=== PATIENT | female | born 1970 ===

== ENCOUNTER 2017-10-02 11:01 | Emergency (ER) | payer MEDICAID, SELFPAY ==
[2017-10-02 11:13] VITALS: BMI 29.0
[2017-10-02 11:14] VITALS: BP 125/53; PULSE 70; RESP 16; TEMP 98.8; O2SAT 98
[2017-10-02] MEDS ORDERED: Naproxen 500 MG TAB PO STA (12:31)
--- NOTE | 2017-10-02 13:22 | ED PDOC ---
Upper Extremity Pain/Injury Time Seen by Provider: 10/02/17 12:30 Chief Complaint (Nursing): Upper Extremity Problem/Injury Chief Complaint (Provider): Upper Extremity Problem/Injury History Per: Patient History/Exam Limitations: no limitations Onset/Duration Of Symptoms: Days (x2) Current Symptoms Are (Timing): Still Present Additional Complaint(s): 47 year old female who presents to the emergency department with a complaint of left hand pain associated with swelling status post falling yesterday. Denied any numbness, difficulty moving fingers or other bodily injuries. PMD: none provided Past Medical History Reviewed: Historical Data, Nursing Documentation, Vital Signs Vital Signs: Last Vital Signs Temp 98.8 F 10/02/17 11:13 Pulse 70 10/02/17 11:13 Resp 16 10/02/17 11:13 BP 125/53 L 10/02/17 11:13 Pulse Ox 98 10/02/17 11:13 - Medical History PMH: No Chronic Diseases - Surgical History Surgical History: No Surg Hx - Family History Family History: States: Unknown Family Hx - Social History Current smoker - smoking cessation education provided: No Alcohol: None Drugs: Denies - Home Medications Home Medications: Ambulatory Orders Medication Instructions Recorded Naproxen 500 mg PO BID #30 tab 10/02/17 traMADol [Ultram] 50 mg PO TID PRN #15 tab 10/02/17 - Allergies Allergies/Adverse Reactions: Allergies Allergy/AdvReac Type Severity Reaction Status Date / Time No Known Allergies Allergy Verified 10/02/17 12:06 Review of Systems ROS Statement: Except As Marked, All Systems Reviewed And Found Negative Musculoskeletal: Positive for: Hand Pain (left-sided injury with swelling). Negative for: Other (difficulty moving fingers or other bodily injuries) Neurological: Negative for: Numbness (left hand) Physical Exam - Reviewed Nursing Documentation Reviewed: Yes Vital Signs Reviewed: Yes - Physical Exam Appears: Positive for: Non-toxic, Uncomfortable, In Acute Distress (mild). Negative for: No Acute Distress Skin: Positive for: Normal Color. Negative for: Rash Extremity: Positive for: Normal ROM (of left metacarpals), Tenderness (left hand over 5th metacarpal), Swelling (and ecchymosis of left hand over 5th metacarpal). Negative for: Deformity (left hand) Neurologic/Psych: Positive for: Alert (x3), reimbursement consultant II-XII (intact), Oriented - ECG O2 Sat by Pulse Oximetry: 98 (RA) Pulse Ox Interpretation: Normal Medical Decision Making Medical Decision Making: Initial Impression: Left hand injury S/P fall Initial Plan: * Naproxen 500m g PO * Xray hand (left) Scribe Attestation: Documented by Phyllis Duff, acting as a scribe for Ernestina Hightower PA-C. Provider Scribe Attestation: All medical record entries made by the Scribe were at my direction and personally dictated by me. I have reviewed the chart and agree that the record accurately reflects my personal performance of the history, physical exam, medical decision making, and the department course for this patient. I have also personally directed, reviewed, and agree with the discharge instructions and disposition. Disposition - Disposition
--- NOTE | 2017-10-02 13:24 | ED PDOC ---
Upper Extremity Pain/Injury Time Seen by Provider: 10/02/17 12:30 Chief Complaint (Nursing): Upper Extremity Problem/Injury Chief Complaint (Provider): Upper Extremity Problem/Injury History Per: Patient History/Exam Limitations: no limitations Onset/Duration Of Symptoms: Days (x2) Current Symptoms Are (Timing): Still Present Additional Complaint(s): 47 year old female who presents to the emergency department with a complaint of left hand pain associated with swelling status post falling yesterday. Denied any numbness, difficulty moving fingers or other bodily injuries. PMD: none provided Past Medical History Reviewed: Historical Data, Nursing Documentation, Vital Signs Vital Signs: Last Vital Signs Temp 98.8 F 10/02/17 11:13 Pulse 70 10/02/17 11:13 Resp 16 10/02/17 11:13 BP 125/53 L 10/02/17 11:13 Pulse Ox 98 10/02/17 11:13 - Medical History PMH: No Chronic Diseases - Surgical History Surgical History: No Surg Hx - Family History Family History: States: Unknown Family Hx - Social History Current smoker - smoking cessation education provided: No Alcohol: None Drugs: Denies - Home Medications Home Medications: Ambulatory Orders Medication Instructions Recorded Naproxen 500 mg PO BID #30 tab 10/02/17 traMADol [Ultram] 50 mg PO TID PRN #15 tab 10/02/17 - Allergies Allergies/Adverse Reactions: Allergies Allergy/AdvReac Type Severity Reaction Status Date / Time No Known Allergies Allergy Verified 10/02/17 12:06 Review of Systems ROS Statement: Except As Marked, All Systems Reviewed And Found Negative Musculoskeletal: Positive for: Hand Pain (left-sided with swelling). Negative for: Other (difficulty moving fingers or other bodily injuries) Neurological: Negative for: Numbness (left hand) Physical Exam - Reviewed Nursing Documentation Reviewed: Yes Vital Signs Reviewed: Yes - Physical Exam Appears: Positive for: Well, Non-toxic, Uncomfortable, In Acute Distress (mild) . Negative for: No Acute Distress Skin: Positive for: Normal Color, Warm, Dry. Negative for: Rash Pulses-Radial (L): 2+ Extremity: Positive for: Normal ROM (left metacarpals), Tenderness (left hand over 5th metacarpal), Swelling (and ecchymosis to left hand over 5th metacarpal) . Negative for: Deformity (left hand) Neurologic/Psych: Positive for: Alert (x3), orthopaedic physician assistant II-XII (intact), Oriented. Negative for: Motor/Sensory Deficits - ECG O2 Sat by Pulse Oximetry: 98 (RA) Pulse Ox Interpretation: Normal Medical Decision Making Medical Decision Making: Initial Impression: Left hand injury status post fall Initial Plan: * Naproxen 500m g PO * Xray hand (left) XR left hand: Comminuted fracture of the distal fifth metacarpal, no dislocation , as read by PA X-ray results discussed with the patient. Diagnoses of left fifth metacarpal fracture discussed with the patient. Orthoglass ulnar gutter splint applied by NAI. Sling applied by NAI. Neurovascular intact post splint application. Based on history, exam and diagnostic results plan will be for outpatient follow-up with orthopedic referral provided. Follow up with ortho referral in 1-2 days without fail. Advised to take medication as prescribed. Return to the emergency room at any time for any new or worsening symptoms. Patient states she fully agrees with and understands discharge instructions. States that she agrees with the plan and disposition. Verbalized and repeated discharge instructions and plan. I have given the patient opportunity to ask any additional questions. Scribe Attestation: Documented by Phyllis Duff, acting as a scribe for Ernestina Hightower PA-C. Provider Scribe Attestation: All medical record entries made by the Scribe were at my direction and personally dictated by me. I have reviewed the chart and agree that the record accurately reflects my personal performance of the history, physical exam, medical decision making, and the department course for this patient. I have also personally directed, reviewed, and agree with the discharge instructions and disposition. Disposition - Clinical Impression Clinical Impression: Closed fracture of 5th metacarpal - Patient ED Disposition Is Patient to be Admitted: No Counseled Patient/Family Regarding: Studies Performed, Diagnosis, Need For Followup, Rx Given - Disposition Referrals: Abhinav Nina MD [Staff Provider] - [facility] [Outside] Disposition: Routine/Home Disposition Time: 13:22 Condition: STABLE Additional Instructions: Thank you for letting us take care of you today. You were treated for left fifth metacarpal fracture. The emergency medical care you received today was directed at your acute symptoms. If you were prescribed any medication, please fill it and take as directed. It may take several days for your symptoms to resolve. Return to the Emergency Department if your symptoms worsen, do not improve, or if you have any other problems. Please one of the physicians/clinics you have been referred to that are listed on the Patient Visit Information form that is included in your discharge packet. Bring any paperwork you were given at discharge with you along with any medications you are taking to your follow up visit. Our treatment cannot replace ongoing medical care by a primary care provider (PCP) outside of the emergency department. Thank you for allowing the [facility] team to be part of your care today. Prescriptions: Naproxen 500 mg PO BID #30 tab traMADol [Ultram] 50 mg PO TID PRN #15 tab PRN Reason: Pain, Moderate (4-7) Instructions: Boxer Fracture (ED) Forms: [facility] ([place]), [facility] ED School/Work Excuse Print Language: TURKMEN - PA / CROP DUSTER / Resident Statement /DO has reviewed & agrees with the documentation as recorded.
--- NOTE | 2017-10-02 15:50 | RAD ---
PROCEDURE: Left Hand Radiographs. HISTORY: pain COMPARISON: None. FINDINGS: BONES: Comminuted fracture of the 5th metacarpal. JOINTS: Unremarkable. SOFT TISSUES: Swelling adjacent to 5th metacarpal. OTHER FINDINGS: None. IMPRESSION: Comminuted fracture of the 5th metacarpal.
== END 2017-10-02 13:49 | disposition home or self-care (01) ==
LOC: H.ER 11:01
DX: S62.307A Unspecified fracture of fifth metacarpal bone, left hand, initial encounter for closed fracture (principal); W19.XXXA Unspecified fall, initial encounter

== ENCOUNTER 2017-10-10 12:24 | Emergency (ER) | payer SELFPAY ==
[2017-10-10 12:24] VITALS: BMI 29.0
[2017-10-10 13:29] VITALS: BP 104/57; PULSE 58; RESP 18; TEMP 97.8; O2SAT 99
--- NOTE | 2017-10-10 14:31 | RAD ---
PROCEDURE: Left Hand Radiographs. HISTORY: pain COMPARISON: None available. FINDINGS: BONES: Comminuted fracture of the distal 5th metacarpal. The remainder of the visualized osseous structures appear intact. JOINTS: No dislocation. SOFT TISSUES: Soft tissue swelling. No evidence of radiopaque foreign body. OTHER FINDINGS: None. IMPRESSION: Comminuted fracture of the distal 5th metacarpal with associated soft tissue swelling.
--- NOTE | 2017-10-10 14:35 | ED PDOC ---
Upper Extremity Pain/Injury Time Seen by Provider: 10/10/17 13:33 Chief Complaint (Nursing): Upper Extremity Problem/Injury Chief Complaint (Provider): Left hand injury History Per: Patient History/Exam Limitations: no limitations Onset/Duration Of Symptoms: Days Current Symptoms Are (Timing): Still Present Additional Complaint(s): Patient was sent to ER by Dr. Duff from [facility] for evaluation of a diagnosed fracture on her left 5th metacarpal on 10/01/2017. Patient denies any numbness, weakness or pain to the area. She denies any new injuries or trauma. Past Medical History Reviewed: Historical Data, Nursing Documentation, Vital Signs Vital Signs: Last Vital Signs Temp 97.8 F 10/10/17 13:26 Pulse 58 L 10/10/17 13:26 Resp 18 10/10/17 13:26 BP 104/57 L 10/10/17 13:26 Pulse Ox 99 10/10/17 13:26 - Medical History PMH: No Chronic Diseases - Surgical History Surgical History: No Surg Hx - Family History Family History: States: Unknown Family Hx - Home Medications Home Medications: Ambulatory Orders Medication Instructions Recorded Naproxen 500 mg PO BID #30 tab 10/02/17 traMADol [Ultram] 50 mg PO TID PRN #15 tab 10/02/17 - Allergies Allergies/Adverse Reactions: Allergies Allergy/AdvReac Type Severity Reaction Status Date / Time No Known Allergies Allergy Verified 10/02/17 12:06 Review of Systems ROS Statement: Except As Marked, All Systems Reviewed And Found Negative Musculoskeletal: Positive for: Other (fracture on left 5th metacarpal) Neurological: Negative for: Weakness, Numbness Physical Exam - Reviewed Nursing Documentation Reviewed: Yes Vital Signs Reviewed: Yes - Physical Exam Appears: Positive for: Non-toxic, No Acute Distress Pulses-Radial (L): 2+ Pulses-Radial (R): 2+ Extremity: Positive for: Capillary Refill (< 2 seconds, neurovascualrly intact) , Deformity (deformity noted to left 5th metacarpal), Swelling (mild swelling noted to dorsal aspect of left 5th metacarpal) Neurologic/Psych: Positive for: Alert, Oriented - ECG O2 Sat by Pulse Oximetry: 99 (RA) Pulse Ox Interpretation: Normal Medical Decision Making Medical Decision Making: Impression: Left hand injury Plan: -- XR Left hand Time: 1435 XR left hand : Comminuted fracture of the distal 5th metacarpal with associated soft tissue swelling. Patient seen and evaluated by Dr. Duff in ED as well. Dr. Duff reviewed XR and placed patient in an orthoglass ulnar gutter splint. He request that the patient be given a Rx for repeat XR of the L hand in 3 weeks and to f/ u in his office. Advised to follow up with Dr. Duff in 1 week without fail. Return to the emergency room at any time for any new or worsening symptoms. Patient states she fully agrees with and understands discharge instructions. States that she agrees with the plan and disposition. Verbalized and repeated discharge instructions and plan. I have given the patient opportunity to ask any additional questions. Scribe Attestation: Documented by Caridad Adame acting as a scribe for NAI Cheema Provider Attestation: All medical record entries made by the Scribe were at my direction and personally dictated by me. I have reviewed the chart and agree that the record accurately reflects my personal performance of the history, physical exam, medical decision making, and the department course for this patient. I have also personally directed, reviewed, and agree with the discharge instructions and disposition. Disposition - Clinical Impression Clinical Impression: Closed fracture of hand - Patient ED Disposition Is Patient to be Admitted: No Counseled Patient/Family Regarding: Studies Performed, Diagnosis, Need For Followup, Rx Given - Disposition Disposition: Routine/Home Disposition Time: 14:35 Condition: STABLE Additional Instructions: Follow up with the clinic in 1 week for re-evaluation. Instructions: Hand Fracture (ED) Forms: [employer] (Mongolian) Print Language: WALLISIAN - PA / CONTINUITY COORDINATOR / Resident Statement / has reviewed & agrees with the documentation as recorded.
--- NOTE | 2017-10-10 14:57 | ED PDOC ---
Procedures - Time-Out Type of Procedure: Placement of ulnar gutter splint Site of Procedure: [facility] Correct Patient: Yes Correct Procedure: Yes Correct Site Marked: Yes X-Ray Marked: Yes Medication Recon: Yes Specialist Name: MD Omega - Splinting Location: Left hand Hand-Made Type: orthoglass Splint: ulnar (gutter) Pre-Proc Neuro Vasc Exam: normal Post-Proc Neuro Vasc Exam: normal Progress: Patient found to have a comminuted fracture involving the 5th metacarpal of the left hand after a fall that occured on 10/01/17. At that time, she was placed in an ulnar splint and was recommended to follow up with Orthopedics. During evaluation at the [facility] the patient and films were re-evaluated. Considering the type of fracture, she was recommended to go to the ER for follow up films in order to re-evaluate positioning of fracture Upon arrival to the ER, she re-X- Rayed. The follow up films displayed a healing fracture with early callus formation in appropriate alignment. Subsequently the patient was placed in an ulnar gutter splint made from Orthoglass, MAI wrap, 2" padding and arm sleeve. Her 4th and 5th digits appropriately flexed at about 10 degrees at the PIP and DIP with approximately 70 degrees of flexion at the MCP, her wrist in slight extension. - Additional Procedures Progress: 5th metacarpal fracture of left hand, comminuted x1 week 1. Ulnar gutter placed 2. Follow up in 3 weeks 3. Repeat X-Rays prior to follow up 4. Pain control PRN
== END 2017-10-10 15:02 | disposition home or self-care (01) ==
LOC: H.ER 12:24
DX: Z47.89 Encounter for other orthopedic aftercare (principal)